=== PATIENT | female | born 1955 | race Caucasian/White ===

== ENCOUNTER → 2016-12-01 | Emergency (ER) | payer BC ==
[~2016-12-01] VITALS: Ht 157.5 cm; Wt 72.0 kg
[~2016-12-01] MED LIST: DICY10CA60 PO; GLIP10TA95 PO; HYDR-906 PO; HYDROmorphONE 1 MG/ML SYG IV STA; IOHEXOL 300MG/ML 150 ML BTL ONE; JANUMET; LISI10TA2 PO; ONDA4TAB14 PO; ONDANSETRON 4 MG INJ IV STA; SOD CHLORIDE 0.9% 1,000 ML IV STA; SOD CHLORIDE 0.9% 100 ML ONE
[2016-12-01 00:58] VITALS: Ht 157.5 cm; Wt 72.0 kg
[2016-12-01 03:03] LABS: ADD SCAN DIFF NO
[2016-12-01 03:04] LABS: BASOPHILS % 0.2 % (0.0-2.0); EOSINOPHILS % 0.2 % (0.0-7.0); HEMOGLOBIN 12.6 g/dl (12.0-16.0); LYMPHOCYTES # 0.8 10^3/ul (0.8-2.9); LYMPHOCYTES % 5.9 % (15.0-51.0); MEAN CORPUSCULAR HEMOGLOBIN 29.2 pg (29.0-33.0); MEAN CORPUSCULAR HGB CONC 33.2 g/dl (32.0-37.0); MEAN PLATELET VOLUME 9.5 fl (7.4-10.4); MONOCYTE # 0.7 10^3/ul (0.3-0.9); MONOCYTES % 5.4 % (0.0-11.0); NEUTROPHIL # 11.3 10^3/ul (1.6-7.5); PLATELET COUNT 233 10^3/UL (140-415); RED BLOOD COUNT 4.32 10^6/ul (4.20-5.40); RED CELL DISTRIBUTION WIDTH 14.3 % (11.5-14.5); WHITE BLOOD COUNT 12.8 10^3/ul (4.8-10.8)
[2016-12-01 03:28] LABS: ALBUMIN 4.4 g/dl (3.3-4.9)
[2016-12-01 03:29] LABS: POTASSIUM 3.7 mmol/L (3.5-5.1)
[2016-12-01 03:31] LABS: BILIRUBIN,INDIRECT 0.9 mg/dl (0-1.1); BILIRUBIN,TOTAL 0.9 mg/dl (0.2-1.3); CREATININE 0.64 mg/dl (0.44-1.00)
[2016-12-01 03:32] LABS: ALBUMIN/GLOBULIN RATIO 1.41; CALCIUM 10.2 mg/dl (8.4-10.2); TOTAL PROTEIN 7.5 g/dl (6.1-8.1)
--- NOTE | 2016-12-01 04:21 | RADRPT ---
PROCEDURE: CT Abdomen and pelvis with contrast. CLINICAL INDICATION: Abdominal pain. TECHNIQUE: CT scan of the abdomen and pelvis with contrast was performed on a multi-detector high -resolution CT scanner. The patient was scanned following the uncomplicated intravenous administrat ion of 100 cc of Omnipaque 300. Coronal and sagittal reformatted images were obtained from the axia l source images. Images were reviewed on a high-resolution PACS workstation. One or more of the following dose reduction techniques were used: - Automated exposure control. - Adjustment of the mA and/or kV according to patient size. - Use of iterative reconstruction technique. Exam CTD/vol = 10.71 mGy. Total exam DLP = 648.15 mGy-cm. COMPARISON: None. FINDINGS: Evaluation of the lung bases demonstrates mild bibasilar atelectasis. Abdomen: The liver is normal in size and diffusely low in attenuation consistent with fatty infiltr ation. There is no focal mass or dilatation of the biliary tree. The gallbladder is not distended. Multiple gallstones are identified. The spleen, pancreas and bilateral adrenal glands are within normal limits. Bilateral kidneys are normal in size with symmetric enhancement. There is no focal mass, hydronephrosis or hydroureter. There is no retroperitoneal adenopathy. The abdominal aorta i s of normal caliber with scattered atherosclerotic calcifications. There is no abnormal bowel wall thickening or distension. There is no bowel obstruction or free air . A normal appendix is identified. There are scattered colonic diverticuli without evidence of div erticulitis. There is no ascites. Pelvis: The bladder is unremarkable. The uterus and adnexa are within normal limits. There is no significant pelvic adenopathy or free fluid. Evaluation of the osseous structures demonstrates no suspicious lytic or blastic lesion. IMPRESSION: No acute abnormality identified within the abdomen and pelvis. Fatty infiltration of the liver. Cholelithiasis. Scattered colonic diverticuli without evidence of diverticulitis. Mild bibasilar atelectasis. Vascular calcifications reflective of atherosclerosis. .Lloyd Red MD, MD Date Time Electronically viewed and signed by .Lloyd Red MD, MD on 12/01/2016 04:21 .T/
--- NOTE | 2016-12-01 05:00 | ERD ---
ER Documentation Chief Complaint Date/Time DATE: 12/01/16 TIME: 04:56 Chief Complaint AP x2 hours. Mid abdomen, Nausea. HPI This is a 61-year-old female who developed supraumbilical abdominal pain 2 hours prior to arrival. The patient had ate some chicken last night that she thought was bad. She also started having nausea vomiting is nonbilious and nonbloody. No diarrhea no fever no chest pain or shortness of breath. Pain is described as crampy. No radiation to the back. No symptoms of the same in the past. No fever ROS All systems reviewed and are negative except as per history of present illness. Medications Home Meds Active Scripts Hydrocodone/Acetaminophen ([place] 5-325 Tablet) 1 Each Tablet, 1 TAB PO Q6H Y for PAIN, #20 TAB Prov:LEVAR CHADWICK DO 12/01/16 Ondansetron (Ondansetron Odt) 4 Mg Tab.rapdis, 4 MG PO Q6H Y for NAUSEA AND/OR VOMITING, #10 TAB Prov:LEVAR CHADWICK DO 12/01/16 Dicyclomine Hcl* (Bentyl*) 10 Mg Capsule, 20 MG PO QID, #30 CAP Prov:LEVAR CHADWICK DO 12/01/16 Reported Medications [Janumet] No Conflict Check 04/04/16 Glipizide* (Glucotrol*) 10 Mg Tablet, 10 MG PO AC BREAKFAST, TAB 02/25/15 Lisinopril* (Lisinopril*) 10 Mg Tablet, 10 MG PO DAILY, TAB 02/25/15 Allergies Allergies: Coded Allergies: No Known Allergy (Unverified , 04/28/15) PMhx/Soc History of Surgery: Yes (RIGHT MASTECTOMY, ) Anesthesia Reaction: No Hx Neurological Disorder: No Hx Respiratory Disorders: No Hx Cardiac Disorders: Yes (HTN) Hx Psychiatric Problems: No Hx Miscellaneous Medical Probl: Yes (left breast CA; remission x 1 yr (chemo/ radiation complete), DMII) Hx Alcohol Use: No Hx Substance Use: No Hx Tobacco Use: No Smoking Status: Never smoker FmHx Family History: No coronary disease Physical Exam Vitals Vital Signs Date Time Temp Pulse Resp B/P Pulse Ox O2 Delivery O2 Flow Rate FiO2 12/01/16 00:58 96.9 97 20 138/68 98 Physical Exam Const: Well-developed, well-nourished Head: Atraumatic, normocephalic Eyes: Normal Conjunctiva, PERRLA, EOMI, normal sclera, no nystagmus ENT: Normal External Ears, Nose and Mouth, moist mucus membranes. Neck: Full range of motion. No meningismus, no lymphadenopathy. Resp: Clear to auscultation bilaterally, no wheezing, rhonchi, rales Cardio: Regular rate and rhythm, no murmurs, S1 S2 present Abd: Soft, diffuse abdominal tenderness along the entire mid abdomen, mild, non distended. Normal bowel sounds, no guarding or rebound, no pulsitile abdominal masses or bruits Skin: No petechiae or rashes, no ecchymosis , no maculopapular rash Back: No midline or flank tenderness Ext: No cyanosis, or edema, FROM x 4, normal inspection, neurovascularly intact x 4 Neur: Awake and alert, STR 5/5 x 4, sensation intact x 4, no focal findings, cerebellum intact Psych: Normal Mood and Affect Result Diagram: 12/01/1622412/01/16224 Results 24 hrs Laboratory Tests Test 12/01/16 02:25 Alanine Aminotransferase (ALT/SGPT) 73IU/L Albumin 4.4g/dl Albumin/Globulin Ratio 1.41 Alkaline Phosphatase 98IU/L Anion Gap 19 Aspartate Amino Transf (AST/SGOT) 52IU/L Basophils # 0.010^3/ul Basophils % 0.2% Blood Urea Nitrogen 26mg/dl Calcium Level 10.2mg/dl Carbon Dioxide Level 28mmol/L Chloride Level 101mmol/L Creatinine 0.64mg/dl Direct Bilirubin 0.00mg/dl Eosinophils # 0.010^3/ul Eosinophils % 0.2% Globulin 3.10g/dl Glucose Level 228mg/dl Hematocrit 38.0% Hemoglobin 12.6g/dl Indirect Bilirubin 0.9mg/dl Lipase 101U/L Lymphocytes # 0.810^3/ul Lymphocytes % 5.9% Mean Corpuscular Hemoglobin 29.2pg Mean Corpuscular Hemoglobin Concent 33.2g/dl Mean Corpuscular Volume 88.0fl Mean Platelet Volume 9.5fl Monocytes # 0.710^3/ul Monocytes % 5.4% Neutrophils # 11.310^3/ul Neutrophils % 88.0% Nucleated Red Blood Cells # 0.010^3/ul Nucleated Red Blood Cells % 0.0/100WBC Platelet Count 67236^3/UL Potassium Level 3.7mmol/L Red Blood Count 4.3210^6/ul Red Cell Distribution Width 14.3% Sodium Level 144mmol/L Total Bilirubin 0.9mg/dl Total Protein 7.5g/dl White Blood Count 12.810^3/ul Current Medications Medications (Trade) Dose Ordered Sig/Wade Route PRN Reason Start Time Stop Time Status Last Admin Dose Admin Sodium Chloride (NS) 1,000 ml @ 1,000 mls/hr Q1H STAT IV 12/01/16 01:56 12/01/16 02:55 DC 12/01/16 02:09 Hydromorphone HCl (Dilaudid) 1 mg ONCE STAT IV 12/01/16 01:56 12/01/16 01:58 DC 12/01/16 02:09 Ondansetron HCl 4 mg 4 mg ONCE STAT IV 12/01/16 01:56 12/01/16 01:58 DC 12/01/16 02:09 Sodium Chloride (NS) 100 ml @ ud STK-MED ONCE .ROUTE 12/01/16 03:22 12/01/16 03:23 DC 12/01/16 03:42 Iohexol (Omnipaque 300mg/ ml) 150 ml STK-MED ONCE .ROUTE 12/01/16 03:22 12/01/16 03:23 DC 12/01/16 03:42 Procedures/MDM PROCEDURE: CT Abdomen and pelvis with contrast. CLINICAL INDICATION: Abdominal pain. TECHNIQUE: CT scan of the abdomen and pelvis with contrast was performed on a multi-detector high-resolution CT scanner. The patient was scanned following the uncomplicated intravenous administration of 100 cc of Omnipaque 300. Coronal and sagittal reformatted images were obtained from the axial source images. Images were reviewed on a high-resolution PACS workstation. One or more of the following dose reduction techniques were used: - Automated exposure control. - Adjustment of the mA and/or kV according to patient size. - Use of iterative reconstruction technique. Exam CTD/vol = 10.71 mGy. Total exam DLP = 648.15 mGy-cm. COMPARISON: None. FINDINGS: Evaluation of the lung bases demonstrates mild bibasilar atelectasis. Abdomen: The liver is normal in size and diffusely low in attenuation consistent with fatty infiltration. There is no focal mass or dilatation of the biliary tree. The gallbladder is not distended. Multiple gallstones are identified. The spleen, pancreas and bilateral adrenal glands are within normal limits. Bilateral kidneys are normal in size with symmetric enhancement. There is no focal mass, hydronephrosis or hydroureter. There is no retroperitoneal adenopathy. The abdominal aorta is of normal caliber with scattered atherosclerotic calcifications. There is no abnormal bowel wall thickening or distension. There is no bowel obstruction or free air. A normal appendix is identified. There are scattered colonic diverticuli without evidence of diverticulitis. There is no ascites. Pelvis: The bladder is unremarkable. The uterus and adnexa are within normal limits. There is no significant pelvic adenopathy or free fluid. Evaluation of the osseous structures demonstrates no suspicious lytic or blastic lesion. IMPRESSION: No acute abnormality identified within the abdomen and pelvis. Fatty infiltration of the liver. Cholelithiasis. Scattered colonic diverticuli without evidence of diverticulitis. Mild bibasilar atelectasis. Vascular calcifications reflective of atherosclerosis. .Lloyd Red MD, Date Time Electronically viewed and signed by .Lloyd Red MD, MD on 12/01/2016 04:21 .T/ CC: LEVAR CHADWICK DO After fluids and pain and nausea medicine the patient is completely asymptomatic now and feels better. The patient does have gallstones on the CAT scan but no evidence of bile duct dilation she also has some slightly elevated liver function test. She does not have pain in the epigastric or right upper quadrant area. Her pain is more along the diffuse mid/lower abdomen just above the umbilicus. She does not clinically fit the picture of gallbladder attack. I did discuss gallbladder symptoms with the patient will have her return as needed. The patient likely has had some bad food or has a GI illness/viral infection Departure Diagnosis: Primary Impression: Abdominal pain Abdominal location: unspecified location Qualified Code: R10.9 - Abdominal pain, unspecified location Additional Impressions: Gall stones Vomiting Vomiting type: unspecified Vomiting Intractability: non-intractable Nausea presence: with nausea Qualified Code: R11.2 - Non-intractable vomiting with nausea, unspecified vomiting type Condition: Stable Patient Instructions: Abdominal Pain, Gallstones, Vomiting (6Y-Adult) LEVAR CHADWICK DO Dec 01, 2016 05:00
[2016-12-01 05:05] VITALS: BP 128/70; PULSE 90; RESP 20; TEMP 96.9
== END | disposition home or self-care (01) ==
LOC: E/R 00:45
DX: R10.84 Generalized abdominal pain (principal); R11.2 Nausea with vomiting, unspecified; K80.20 Calculus of gallbladder without cholecystitis without obstruction; I10 Essential (primary) hypertension; E11.9 Type 2 diabetes mellitus without complications; Z85.3 Personal history of malignant neoplasm of breast; Z79.84 Long term (current) use of oral hypoglycemic drugs
CPT/HCPCS: 36415; 74177; 80053; 83690; 85025; 96374; 96375; 99285; J1170; J2405; J7030; Q9967; Z7610